=== PATIENT | female | born 1995 | race Caucasian/White ===

== ENCOUNTER → 2017-01-01 | Outpatient (CLI) | payer BC | LOC: BMCIMAGING 12:37 | PROVIDERS: ATTEND Family Medicine | DX: R05 Cough (principal) | CPT/HCPCS: 71101-PO ==

== ENCOUNTER 2018-05-10 19:17 | Emergency (ER) | payer BC ==
[2018-05-10 19:23] VITALS: BP 126/75
--- NOTE | 2018-05-10 19:40 | EDPHY ---
H & P Stated Complaint: LAC TO RIGHT HAND Time Seen by Provider: 05/10/18 19:40 - Personal History LMP (Females 10-55): 1-7 Days Ago Current Tetanus/Diphtheria Vaccine: Yes Current Tetanus Diphtheria and Acellular Pertussis (TDAP): Yes - Medical/Surgical History Hx Asthma: No Hx Chronic Respiratory Disease: No Hx Diabetes: No Hx Cardiac Disease: No Hx Renal Disease: No Hx Cirrhosis: No Hx Alcoholism: No Hx HIV/AIDS: No Hx Splenectomy or Spleen Trauma: No - Social History Smoking Status: Never smoked Constitutional: Initial Vital Signs Temperature (C) 37.3 C 05/10/18 19:19 Heart Rate 97 05/10/18 19:19 Respiratory Rate 18 05/10/18 19:19 Blood Pressure 126/75 H 05/10/18 19:19 O2 Sat (%) 97 05/10/18 19:19 O2 Delivery Mode Room Air Allergies/Adverse Reactions: No Known Allergies Allergy (Unverified 05/10/18 19:22) Home Medications: Medication Instructions Recorded NK [No Known Home Meds] 05/10/18 Medical Decision Making ED Course/Re-evaluation: CHIEF COMPLAINT: Laceration HISTORY OF PRESENT ILLNESS: The patient is a 22 y/o female complaining of a laceration over her right middle knuckle after knocking it against a wall. The bleeding would not stop after an hour so she presented to the emergency department. No fever, headache, body aches, lightheadedness, chest pain, heart palpitations, shortness of breath , cough, abdominal pain, urinary or bowel complaints, numbness, paresthesias. REVIEW OF SYSTEMS: A comprehensive 10 system review of systems is otherwise negative aside from elements mentioned in the history of present illness and medical decision making. PHYSICAL EXAM: HR, BP, O2 Sat, RR. Temp noted General Appearance: Alert, well hydrated, appropriate, and non-toxic appearing. Head: Atraumatic without scalp tenderness or obvious injury Eyes: Pupils equal, round, reactive to light and accommodation, EOMI, no trauma , no injection. Ears: Clear bilaterally, no perforation, normal landmarks Nose: Atraumatic, no rhinorrhea, clear. Throat: There is no erythema or exudates, no lesions, normal tonsils, mucus membranes moist. Neck: Supple, 2+ carotid upstroke, nontender, no lymphadenopathy. Respiratory: No retractions, no distress, no wheezes, and no accessory muscle use. Lungs are clear to auscultation bilaterally. Cardiovascular: Regular rate and rhythm, no murmurs, rubs, or gallops. Bilateral carotid, radial, dorsalis pedis, and posterior tibial pulses intact. Good capillary refill all extremities. Gastrointestinal: Abdomen is soft, nontender, non-distended, no masses, no rebound, no guarding, no peritoneal signs. Musculoskeletal: Normal active ROM of all extremities, atraumatic. Neurological: Alert, appropriate, and interactive. The patient has normal DTRs and non-focal cranial nerves, motor, sensory, and cerebellar exam. Skin: Right 3rd PIP 1cm laceration. No rashes, good turgor, no nodules on palpation. Past medical history: Denies Past surgical history: Denies Family history: Denies Social history: Lives in [place], single, student at DIAGNOSTICS/PROCEDURES/CRITICAL CARE TIME: Not indicated DIFFERENTIAL DIAGNOSIS: The differential diagnosis for the patient's laceration included but was not limited to abrasion, laceration, cellulitis MEDICAL DECISION MAKING: The patient is a 22 y/o female presenting with a laceration over her right middle knuckle after knocking it against a wall. On exam she has a 1cm laceration to her right 3rd PIP. I applied Dermabond. Return precautions provided; patient is comfortable with this plan. Departure - Departure Disposition: Home, Routine, Self-Care Clinical Impression: Laceration Condition: Good Instructions: Laceration (ED) Additional Instructions: 1. Return to the Emergency Department for fever, redness, discharge from wound, increasing pain or other worsening of condition. Referrals: [facility],. [Clinic] - As per Instructions Report Scribed for: Octavio Coe Report Scribed by: Ashleigh Muller Date of Report: 05/10/18 Time of Report: 19:42
[2018-05-10] MEDS ORDERED: SKIN ADHESIVE (DERMABOND) 1 EACH TP ONE (19:44)
== END 2018-05-10 20:04 | disposition home or self-care (01) ==
PROC: 0HQFXZZ Repair Right Hand Skin, External Approach (ICD-10-PCS; principal; 2018-05-10)
DX: S61.212A Laceration without foreign body of right middle finger without damage to nail, initial encounter (principal); W22.09XA Striking against other stationary object, initial encounter; Y92.9 Unspecified place or not applicable; Y93.9 Activity, unspecified; Y99.9 Unspecified external cause status